=== PATIENT | female | born 1975 | race Two or more races ===

== ENCOUNTER 2016-08-28 09:25 | Emergency (ER) | payer MEDICARE ==
[~2016-08-28] VITALS: Ht 162.6 cm; Wt 90.7 kg
[~2016-08-28 09:25] MED LIST: ALPRAZOLAM0.25 MG ORAL; AMIKACIN S500 MG/2 M IVPB; BENZTROPINE MESY2 MG ORAL; FLUPHENAZINE HCL5 MG ORAL; IBUPROFEN600 MG ORAL; IBUPROFEN800 MG ORAL; VANCOMYCIN1 GM/2502 IVPB
[2016-08-28 09:32] VITALS: BP 121/81
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
--- NOTE | 2016-08-28 11:30 | Diagnostic Imaging Report ---
Indication: PAIN Technique: One view of the pelvis Comparison: None Findings: No acute fractures. No dislocations. The joint spaces are preserved Impression: Negative
[2016-08-28 11:41] VITALS: BP 121/81
--- NOTE | 2016-08-28 14:49 | Diagnostic Imaging Report ---
Indication: PAIN Technique: 3 views of the left knee Comparison: None Findings:3 corticated ossific densities project in the posterior joint. One of these may be an ossified fabella, intra-articular loose bodies as etiology of the others excludable. Small ossific density projects cephalad to the fibular head, may reflect old injury. There are is a small osteophyte medially. Joint spaces are preserved. Questionable small suprapatellar effusion Impression:No acute bony trauma Possible small suprapatellar effusion Other findings as described
== END 2016-08-28 11:41 | disposition home or self-care (01) ==
LOC: EMR 10:35
DX: M17.0 Bilateral primary osteoarthritis of knee (principal); J45.909 Unspecified asthma, uncomplicated; F31.9 Bipolar disorder, unspecified; F25.9 Schizoaffective disorder, unspecified; Z86.73 Personal history of transient ischemic attack (TIA), and cerebral infarction without residual deficits
CPT/HCPCS: 72170; 99284

== ENCOUNTER 2016-09-14 14:49 | Emergency (ER) | payer MEDICARE, OTHER ==
[~2016-09-14] VITALS: Ht 165.1 cm; Wt 90.7 kg
[2016-09-14] MEDS ORDERED: ATIVAN0.5 MG ORAL (15:02)
[2016-09-14] MEDS ORDERED: CLINDAMYCIN HC150 MG ORAL (15:09)
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
[2016-09-14 15:15] VITALS: BP 136/78
== END 2016-09-14 15:15 | disposition home or self-care (01) ==
LOC: EMR 15:13
DX: L02.415 Cutaneous abscess of right lower limb (principal); Z88.6 Allergy status to analgesic agent; Z88.0 Allergy status to penicillin; Z88.8 Allergy status to other drugs, medicaments and biological substances; J45.909 Unspecified asthma, uncomplicated; Z86.73 Personal history of transient ischemic attack (TIA), and cerebral infarction without residual deficits; Z86.59 Personal history of other mental and behavioral disorders; R01.1 Cardiac murmur, unspecified; M19.90 Unspecified osteoarthritis, unspecified site
CPT/HCPCS: 99283

== ENCOUNTER 2016-09-18 10:39 | Emergency (ER) | payer MEDICARE, OTHER ==
[~2016-09-18] VITALS: Ht 165.1 cm; Wt 90.7 kg
[~2016-09-18 10:39] MED LIST changes: +ATIVAN0.5 MG ORAL; +CLINDAMYCIN HC150 MG ORAL
[2016-09-18 11:00] VITALS: BP 130/84
[2016-09-18] MEDS ORDERED: Bacitracin Oint UD TOPIC ONE (11:11)
[2016-09-18] MEDS ORDERED: Lidocaine 1% 10mg/ml/Epi 0.005mg/ml 30ml vial INJ ONE (11:11)
[2016-09-18 12:38] VITALS: BP 142/80
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
== END 2016-09-18 12:59 | disposition home or self-care (01) ==
LOC: EMR 11:10
DX: L02.415 Cutaneous abscess of right lower limb (principal); J45.909 Unspecified asthma, uncomplicated; Z88.0 Allergy status to penicillin; Z88.6 Allergy status to analgesic agent; Z88.8 Allergy status to other drugs, medicaments and biological substances
CPT/HCPCS: 10060

== ENCOUNTER 2017-02-20 11:08 | Emergency (ER) | payer MEDICARE ==
[~2017-02-20] VITALS: Ht 165.1 cm; Wt 97.5 kg
[2017-02-20 11:53] VITALS: BP 136/83
[2017-02-20] MEDS ORDERED: IBUPROFEN800 MG ORAL (12:02)
[2017-02-20] MEDS ORDERED: BACTRIM DS TAB1 EAC1 ORAL (12:02)
[2017-02-20 12:06] VITALS: BP 136/83
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
== END 2017-02-20 12:10 | disposition home or self-care (01) ==
LOC: EMR 11:47
DX: K13.0 Diseases of lips (principal); J45.909 Unspecified asthma, uncomplicated
CPT/HCPCS: 99284

== ENCOUNTER 2017-02-22 09:23 | Emergency (ER) | payer MEDICARE, OTHER ==
[~2017-02-22] VITALS: Ht 165.1 cm; Wt 97.1 kg
[~2017-02-22 09:23] MED LIST changes: +BACTRIM DS TAB1 EAC1 ORAL
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
[2017-02-22] MEDS ORDERED: Bactrim DS (160mg/800mg) tab ORAL ONE (10:15)
[2017-02-22] MEDS ORDERED: Lidocaine 1% 10mg/ml/Epi 0.005mg/ml 30ml vial INJ ONE (10:15)
[2017-02-22] MEDS ORDERED: traMADol 50mg tab ORAL ONE (10:15)
[2017-02-22] MEDS ORDERED: Lidocaine 2% Visc 15ml soln ORAL ONE (10:15)
[2017-02-22 10:58] LABS: APPEARANCE,URINE SLIGHTLY CLOUDY; KETONES,URINE NEGATIVE (NEGATIVE); LEUKOCYTE ESTERASE ,URINE NEGATIVE (NEGATIVE); NITRITE,URINE NEGATIVE (NEGATIVE); PH,URINE 6.5 (4.5-8.0); PROTEIN,URINE NEGATIVE (NEGATIVE); UROBILINOGEN,URINE NORMAL MG/DL (0.0-1.0)
[2017-02-22 11:11] LABS: BACTERIA,URINE FEW /HPF; RBC,URINE 0-2 /HPF (0 - 2); SQUAMOUS EPITHELIAL CELL,UR FEW /LPF (NONE/OCC)
[2017-02-22] MEDS ORDERED: Cefepime HCl 1 GM in NS 55 ML IV STA (13:17)
[2017-02-22] MEDS ORDERED: Morphine Sulfate 4mg/ml Inj IVP ONE (13:30)
[2017-02-22] MEDS ORDERED: Vancomycin 1.5gm/D5W 250ml 250 ML IVPB ONE (13:30)
[2017-02-22] MEDS ORDERED: Lidocaine 1% MPF 10mg/ml 5ml ONE (13:35)
[2017-02-22] MEDS ORDERED: Cefepime 1gm vial ONE (14:14)
[2017-02-22 14:41] LABS: ALANINE AMINOTRANSFERASE 11 U/L (3-33); ALBUMIN/GLOBULIN RATIO 1.1 (1.0-2.7); ANION GAP 14 (5-15); ASPARTATE AMINO TRANSFERASE 11 U/L (5-40); CALCIUM 9.4 mg/dL (8.6-10.2); CARBON DIOXIDE 25 mEQ/L (20-30); CHLORIDE 101 mEQ/L (98-107); CREATININE 0.6 mg/dL (0.5-0.9); GLOMERULAR FILTRATION RATE > 60 mL/min (>60); HEMOLYSIS 0; POTASSIUM 3.9 mEQ/L (3.4-4.9); SODIUM 140 mEQ/L (135-145); TOTAL PROTEIN 8.4 g/dL (6.6-8.7)
[2017-02-22 14:43] LABS: BASOPHILS % (AUTO) 0.5 % (0.0-2.0); EOSINOPHILS % (AUTO) 2.8 % (0.0-3.0); LYMPHOCYTES % (AUTO) 18.2 % (20.0-45.0); MEAN CORPUSCULAR HEMOGLOBIN 29.9 PG (27.0-31.0); MEAN CORPUSCULAR HGB CONC 31.6 G/DL (32.0-36.0); MEAN CORPUSCULAR VOLUME 95 FL (80-99); MEAN PLATELET VOLUME 7.4 FL (6.5-10.1); MONOCYTES % (AUTO) 5.6 % (1.0-10.0); PLATELET COUNT 298 K/UL (150-450); RED BLOOD COUNT 4.05 M/UL (4.20-5.40); RED CELL DISTRIBUTION WIDTH 12.9 % (11.6-14.8); WHITE BLOOD COUNT 17.3 K/UL (4.8-10.8)
[2017-02-22 15:47] LABS: ERYTHROCYTE SEDIMENTATION RATE 40 MM/HR (0-20)
[2017-02-22 18:30] VITALS: BP 124/83
--- NOTE | 2017-02-23 09:16 | Diagnostic Imaging Report ---
Indication: Upper lip swelling Technique: Continuous helical transaxial imaging of the maxillofacial structures obtained after intravenous contrast administration. Coronal 2-D reformats were also obtained. Study obtained in a Siemens sensation [address] Total Dose length Product (DLP): [address] Dose Index Volume (CTDIvol): 28.2, 0.15 mGy Comparison: None Findings: There is moderate subcutaneous edema enhancement just below the nose anterior to the superior alveolar ridge. Central to the area of enhancement there is a small pocket of low attenuation consistent with abscess measuring approximately 2 cm transversely 1 cm AP. There is no periostitis or erosion involving the supraorbital ridge or other bones. Paranasal sinuses are clear. The orbits are unremarkable. There is sclerosis and hypertrophy of the mastoid bone on the right with opacification of the mastoid air cells consistent with chronic mastoiditis. Opacification of the middle ear canal also demonstrated. Impression: Suspicion of 2 x 1 cm abscess anterior to the superior alveolar ridge with moderate inflammation and soft tissue edema. Incidental chronic right mastoiditis and otitis media as described above The CT scanner at [facility] is accredited by the [employer] and the scans are performed using dose optimization techniques as appropriate to a performed exam including Automatic Exposure control.
== END 2017-02-22 18:45 | disposition short-term general hospital (02) ==
LOC: EMR 10:13
DX: L02.01 Cutaneous abscess of face (principal); H70.91 Unspecified mastoiditis, right ear; H66.91 Otitis media, unspecified, right ear; Z88.0 Allergy status to penicillin; Z88.6 Allergy status to analgesic agent; Z88.8 Allergy status to other drugs, medicaments and biological substances; J45.909 Unspecified asthma, uncomplicated; F17.200 Nicotine dependence, unspecified, uncomplicated
CPT/HCPCS: 10060; 36415; 70487; 80053; 81003; 81025; 83605; 85025; 85610; 85651; 85730; 86140; 87040; 96361; 96365; 96366; 96375; 99285; J0692; J1956; J2270; J2405; J3370; Q9967

== ENCOUNTER 2017-11-08 18:07 | Emergency (ER) | payer MEDICARE ==
[~2017-11-08] VITALS: Ht 165.1 cm; Wt 99.8 kg
[2017-11-08 18:17] VITALS: BP 120/73
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
[2017-11-08] MEDS ORDERED: LIDODERM700 M1 TOPIC (20:37)
[2017-11-08] MEDS ORDERED: HYDROCORTISONE30 G2 TP (20:37)
[2017-11-08] MEDS ORDERED: BENADRYL ALLERG25 M1 PO (20:37)
[2017-11-08] MEDS ORDERED: IBUPROFEN800 MG ORAL (20:37)
[2017-11-08 20:50] VITALS: BP 124/76
--- NOTE | 2017-11-09 18:04 | Diagnostic Imaging Report ---
Indication: Pain Technique: XRAY Hip Routine 2v+ R Comparison: Pelvis radiographs of 08/28/2016 Findings: No evidence of acute fracture or dislocation. Symphysis pubis appears preserved. Pelvic phleboliths again noted, with an unchanged 1.4 cm calcification in the right pelvis, also likely a phlebolith Impression: No evidence of acute fracture or dislocation.
--- NOTE | 2017-11-09 18:14 | Diagnostic Imaging Report ---
Indication: Pain Technique: XRAY Knee 3v R Comparison: 11/19/2015 Findings: There is no evidence of acute fracture or dislocation. There is mild degenerative change of the right knee with some small tricompartmental osteophytes and question of mild medial compartment joint space narrowing. No significant suprapatellar joint effusion is identified. Is a 5 mm linear radiopaque density in the anterior soft tissues of the knee seen on all views. This is concerning for retained foreign body. Impression: No evidence of acute fracture or dislocation. 5 mm linear metallic density in the soft tissues of the anterior knee seen on all views. This is concerning for foreign body. This was seen on prior exam 11/06/2015 and is unchanged.
== END 2017-11-08 20:50 | disposition home or self-care (01) ==
LOC: EMR 18:42
DX: M25.561 Pain in right knee (principal); M25.551 Pain in right hip; W01.0XXA Fall on same level from slipping, tripping and stumbling without subsequent striking against object, initial encounter; Y92.9 Unspecified place or not applicable; J45.909 Unspecified asthma, uncomplicated; Z88.6 Allergy status to analgesic agent; Z88.0 Allergy status to penicillin
CPT/HCPCS: 81025; 99284

== ENCOUNTER 2018-06-08 10:23 | Emergency (ER) | payer MEDICARE, OTHER ==
[~2018-06-08] VITALS: Ht 165.1 cm; Wt 90.7 kg
[~2018-06-08 10:23] MED LIST changes: +BENADRYL ALLERG25 M1 PO; +HYDROCORTISONE30 G2 TP; +LIDODERM700 M1 TOPIC
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
[2018-06-08 10:38] VITALS: BP 135/75
--- NOTE | 2018-06-08 10:42 | NUR ---
ED Nurse Note: Pt noted to have a rt leg brace since March 2018 due to arthritis on the leg.
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
--- NOTE | 2018-06-08 11:57 | NUR ---
ED Nurse Note: Crutches has been provided for the pt.
[2018-06-08 12:00] VITALS: BP 128/74
[2018-06-08 12:08] VITALS: BP 135/75
--- NOTE | 2018-06-08 12:08 | NUR ---
ED Nurse Note: Pt is clear to be discharged by ERMD. Discharge paper and prescription given, pt verbalized understanding of discharge instruction. AOx4, VSS tee. Wristband removed. Pt ambulated out with with steady gait with all belongings.
== END 2018-06-08 12:08 | disposition home or self-care (01) ==
LOC: EMR 11:13
DX: M25.561 Pain in right knee (principal); G89.29 Other chronic pain; J45.909 Unspecified asthma, uncomplicated; I10 Essential (primary) hypertension; Z88.6 Allergy status to analgesic agent; Z88.0 Allergy status to penicillin; Z88.8 Allergy status to other drugs, medicaments and biological substances; Z86.73 Personal history of transient ischemic attack (TIA), and cerebral infarction without residual deficits
CPT/HCPCS: 99283

== ENCOUNTER 2019-06-03 01:27 | Emergency (ER) | payer OTHER, MEDICAID ==
[~2019-06-03] VITALS: Ht 165.1 cm; Wt 95.3 kg
[~2019-06-03 01:27] MED LIST changes: +ABILIFY20 MG ORAL; +BENZTROPINE ME0.5 MG PO; +CYCLOBENZAPRINE10 MG ORAL; +GABAPENTIN300 MG ORAL; +LEXAPRO20 MG ORAL; +NITROFURANTOIN100 M2 ORAL; +SIMVASTATIN5 MG ORAL; +TRAMADOL HCL50 MG ORAL; +ZOLPIDEM TARTRA10 MG ORAL; +ZYPREXA5 MG ORAL
[2019-06-03 01:45] VITALS: BP 160/100
--- NOTE | 2019-06-03 01:47 | NUR ---
ER Nurse Note: Pt brought in by ambulance from home c/o bilateral wrist pain s/o fall. Pt stated she tripped and fell on her wrists to "catch her fall". Per pt, pt fell around 1999 on 06/01. Pt arrived with gauze on bilateral wrists; skin clean dry intact. Cap refill less than 3 secs. Pt able to move wrists with pain. Will continue to [facility].
--- NOTE | 2019-06-03 02:22 | NUR ---
ER Nurse Note: X-ray taken; pt calm. Awaiting further orders; will continue to [facility].
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
--- NOTE | 2019-06-03 03:56 | Diagnostic Imaging Report ---
Clinical Indication:Pain, trauma Technique: 3 views of the right wrist Comparison: None Findings: No acute fractures. No dislocations. The joint spaces are preserved. Impression: Negative This agrees with the preliminary interpretation provided by the emergency room physician
--- NOTE | 2019-06-03 03:56 | Diagnostic Imaging Report ---
Clinical Indication:Pain, trauma Technique: 3 views of the left wrist Comparison: None Findings: No acute fractures. No dislocations. Joint spaces are preserved. Impression: No acute bony trauma
[2019-06-03 04:15] VITALS: BP 148/84
--- NOTE | 2019-06-03 04:15 | NUR ---
ER Nurse Note: Patient is medlically cleared for discharge per ERMD. Discharge instructions explained with repeat verbalization by pt. Emphasized to follow up with primary care physican within 2-4 days. Pt aox4, on room air, with stable vital signs. GAURANG wrap applied on bilateral wrists. ID band removed. Pt is able to ambulate with steady gait. Pt took all belongings.
--- NOTE | 2019-06-03 11:02 | Diagnostic Imaging Report ---
Indications: Pain, trauma Technique: Two views of the left forearm Comparison: None Findings: No acute fractures. No dislocations. Joint spaces are preserved Impression: Negative
--- NOTE | 2019-06-03 11:03 | Diagnostic Imaging Report ---
Indications: Trauma, pain Technique: Two views of the right forearm Comparison: None Findings: No acute fractures. No dislocations. Joint spaces are preserved. No radiopaque foreign body Impression: Negative
== END 2019-06-03 04:15 | disposition home or self-care (01) ==
LOC: EDBD 01:27 → EMR 02:00
DX: S60.212A Contusion of left wrist, initial encounter (principal); S60.221A Contusion of right hand, initial encounter; S50.01XA Contusion of right elbow, initial encounter; S00.81XA Abrasion of other part of head, initial encounter; M79.89 Other specified soft tissue disorders; R01.1 Cardiac murmur, unspecified; G40.909 Epilepsy, unspecified, not intractable, without status epilepticus; M19.90 Unspecified osteoarthritis, unspecified site; J45.909 Unspecified asthma, uncomplicated; W01.0XXA Fall on same level from slipping, tripping and stumbling without subsequent striking against object, initial encounter; Y93.9 Activity, unspecified; Y92.9 Unspecified place or not applicable; Z88.6 Allergy status to analgesic agent; Z88.0 Allergy status to penicillin; Z88.5 Allergy status to narcotic agent; Z88.8 Allergy status to other drugs, medicaments and biological substances; Z86.73 Personal history of transient ischemic attack (TIA), and cerebral infarction without residual deficits
CPT/HCPCS: 99284